=== PATIENT | female | born 1995 | race Two or more races ===

== ENCOUNTER 2018-10-24 02:42 | Emergency (ER) | payer MEDICAID, OTHER ==
[~2018-10-24] VITALS: Ht 162.6 cm; Wt 72.6 kg
[2018-10-24] MEDS ORDERED: DexAMETHasone SOD PHOS 10MG/1ML VIAL INJ IM ONE (04:45)
[2018-10-24] MEDS ORDERED: cefTRIAXone SOD 1,000 MG VL IM ONE (04:45)
[2018-10-24 04:54] VITALS: BP 117/85
== END 2018-10-24 05:23 | disposition home or self-care (01) ==
LOC: ER 02:49
DX: J06.9 Acute upper respiratory infection, unspecified (principal)
CPT/HCPCS: 96372; 99283; J0696; J1100